=== PATIENT | male | born 1935 | race Caucasian/White ===

== ENCOUNTER 2017-07-12 07:23 | Day surgery (SDC) | payer OTHER ==
[~2017-07-12 07:23] MED LIST: ACET500 PO; MSM PO; NAPR220 PO
== END 2017-07-12 22:56 | disposition home or self-care (01) ==
LOC: MOI US 07:23
PROC: 07B63ZX Excision of Left Axillary Lymphatic, Percutaneous Approach, Diagnostic (ICD-10-PCS; principal; 2017-07-12)
DX: C82.04 Follicular lymphoma grade I, lymph nodes of axilla and upper limb (principal)
CPT/HCPCS: 38505; 76942; 88305

== ENCOUNTER → 2017-08-20 | Outpatient (CLI) | payer OTHER ==
[~2017-08-20] MED LIST changes: +CARB150; +RASA1
[2017-08-21 13:18] LABS: Adenovirus F 40/41 Not Detected (NOT DETECT); Astrovirus Not Detected (NOT DETECT); Campylobacter Sp Not Detected (NOT DETECT); Cryptosporidium Not Detected (NOT DETECT); Cyclospora Cayetanensis Not Detected (NOT DETECT); E. Coli O157 Not Detected (NOT DETECT); Entamoeba Histolytica Not Detected (NOT DETECT); Enteroaggregative E. coli-EAEC Not Detected (NOT DETECT); Enteropathogenic E. coli-EPEC Not Detected (NOT DETECT); Enterotoxigenic E. coli-ETEC Not Detected (NOT DETECT); Giardia Lamblia Not Detected (NOT DETECT); Norovirus GI/GII Not Detected (NOT DETECT); Plesiomonas Shigelloides Not Detected (NOT DETECT); Rotavirus A Not Detected (NOT DETECT); Salmonella Sp Not Detected (NOT DETECT); Sapovirus Not Detected (NOT DETECT); Shiga Toxin-prod E. coli-STEC Not Detected (NOT DETECT); Shigella/Enteroin E. coli-EIEC Not Detected (NOT DETECT); Vibrio Cholerae Not Detected (NOT DETECT); Vibrio Sp Not Detected (NOT DETECT); Yersinia Enterocolitica Not Detected (NOT DETECT)
[2017-08-21 13:59] LABS: Stool Occult Bld Immuno 1 Positive (NEGATIVE)
== END | disposition home or self-care (01) ==
LOC: LAB 13:19 → LAB FUT 08-19 12:35
PROVIDERS: Internal Medicine
DX: R19.7 Diarrhea, unspecified (principal)
CPT/HCPCS: 87507; G0328

== ENCOUNTER 2017-12-02 11:41 | Day surgery (SDC) | payer OTHER ==
[~2017-12-02] VITALS: Ht 175.3 cm; Wt 71.6 kg
[~2017-12-02 11:41] MED LIST changes: -CARB150; -RASA1
[2017-12-02] MEDS ORDERED: RASA1 (12:15)
[2017-12-02] MEDS ORDERED: CARB150 (12:16)
== END 2017-12-02 13:27 | disposition home or self-care (01) ==
LOC: ORSCSDS 11:41
PROVIDERS: Internal Medicine Gastroenterology
PROC: 0DBE8ZX Excision of Large Intestine, Via Natural or Artificial Opening Endoscopic, Diagnostic (ICD-10-PCS; principal; 2017-12-02 12:45)
PROC: 0DBB8ZX Excision of Ileum, Via Natural or Artificial Opening Endoscopic, Diagnostic (ICD-10-PCS; principal; 2017-12-02 12:45)
DX: K92.1 Melena (principal); K52.9 Noninfective gastroenteritis and colitis, unspecified; K64.8 Other hemorrhoids; K57.30 Diverticulosis of large intestine without perforation or abscess without bleeding; Z86.010 Personal history of colon polyps; Z79.899 Other long term (current) drug therapy
CPT/HCPCS: 88305; J1980; J7120

== ENCOUNTER → 2017-12-11 | Outpatient (CLI) | payer OTHER ==
[~2017-12-11] MED LIST changes: +CARB150; +RASA1
== END | disposition home or self-care (01) ==
LOC: LAB EV 08:15
DX: K58.9 Irritable bowel syndrome, unspecified (principal)
CPT/HCPCS: 83993

== ENCOUNTER 2018-09-16 05:46 | Day surgery (SDC) | payer MEDICARE ==
[~2018-09-16] VITALS: Ht 172.7 cm; Wt 76.3 kg
[~2018-09-16 05:46] MED LIST changes: +Carbidopa-Levo1 EAC1 PO; +ELIQUIS5 MG PO; +Lopressor 25 mg25 MG PO; -RASA1; +RASA1 PO
--- NOTE | 2018-09-16 06:40 | NUR ---
History, Chart, Medications and Allergies reviewed before start of procedure. Patient confirms NPO status and agrees with scheduled surgery. Lungs clear T/O to Auscultation. Patient States Post-Procedure ride home has been arranged. Patient reports completing Chlorhexadine shower X2 prior to admission to hospital. Pre-Op teaching done. Pt verbalizes understanding.
--- NOTE | 2018-09-16 08:19 | NUR ---
09/16/18 0819 Ignacia Magaña PT VOIDED PRIOR TO COMING TO THE OR
--- NOTE | 2018-09-16 10:16 | NUR ---
ASSUMED PT CARE FROM ALONA BONILLA RN.
--- NOTE | 2018-09-16 11:00 | NUR ---
ASSUMED CARE OF PT. PT DENIES PAIN. BIOX 97% ON RA. PT GIVEN SIPS OF WATER TO DRINK. PT WITH 3 SMALL ABD INCISION WITH DERMABOND, INTACT NO DRAINAGE.
--- NOTE | 2018-09-16 11:11 | NUR ---
PT FALLS BACK TO SLEEP AND BIOX DROPS TO 90% ON RA. O2 PLACED AT 2L. PT BIOX 92% WHILE SLEEPING. PT HAS WATER, CRACKERS AND APPLESAUCE TO EAT AT HIS CONVENIENCE. PT INSTRUCTED TO HE WOULD NEED TO VOID PRIOR TO DISCHARGE. PT VERBALIZED UNDERSTANDING
--- NOTE | 2018-09-16 11:42 | NUR ---
PT SLEEPING WITH LIGHT SNORING RESPIRATIONS. PT ROUSES EASILY. PT ENCOURAGED TO EAT A CRACKER AND SOME APPLESAUCE TO PRIVIDE HIM WITH A PAIN PILL. PT ABLE TO EAT AND DRINK FLUIDS AND PARK WELL, DENIES NAUSEA. NORCO X 1 TABLET PROVIDED.
--- NOTE | 2018-09-16 12:25 | NUR ---
PT AMB TO AMBULATE TO THE BATHROOM AND VOID APPROX 150CC URINE. DAUGHTER CALLED AND INFORMED THAT PT WOULD BE READY TO GO SOON. SHE STATES IT WOULD BE ABOUT 30 MINUTES BEFORE THEY WOULD BE BACK TO GET HIM. PT ABLE TO GET HIMSELF DRESSED AND IS RELAXING IN BED WHILE HE WAIT FOR RIDE.
--- NOTE | 2018-09-16 12:51 | NUR ---
Discharge instructions reviewed with patient. Patient verbalizes understanding. Copy given to patient to take home. PT RESTING COMFORTABLY. DENIES NEEDS FOR ANYTHING ADDITIONAL AT THIS TIME. ICE PACK PROVIDED FOR PT COMFORT.
== END 2018-09-16 23:51 | disposition home or self-care (01) ==
LOC: ORSCMMR 05:46 → ORD 10:00 → ORSCMMR 10:00 → ORD 10:30 → ORSCMMR 23:51
PROVIDERS: Surgery
PROC: 0YU54JZ Supplement Right Inguinal Region with Synthetic Substitute, Percutaneous Endoscopic Approach (ICD-10-PCS; principal; 2018-09-16 07:30)
PROC: 8E0W4CZ Robotic Assisted Procedure of Trunk Region, Percutaneous Endoscopic Approach (ICD-10-PCS; principal; 2018-09-16 07:30)
DX: K40.90 Unilateral inguinal hernia, without obstruction or gangrene, not specified as recurrent (principal); I48.91 Unspecified atrial fibrillation; Z79.01 Long term (current) use of anticoagulants; G20 Parkinson's disease; Z79.899 Other long term (current) drug therapy
CPT/HCPCS: 49650; S2900; A9270-GY; C1781; J0690; J2370; J2704; J2710; J3010; J7120

== ENCOUNTER 2018-10-27 11:28 | Day surgery (SDC) | payer MEDICARE ==
[~2018-10-27] VITALS: Ht 175.3 cm; Wt 73.0 kg
--- NOTE | 2018-10-27 13:33 | NUR ---
10/27/18 1333 JULY SANTOS 1 IV START IN RIGHT HAND BY MARY JO 2 IV START IN RIGHT WRIST BY PERRY
== END 2018-10-27 15:07 | disposition home or self-care (01) ==
LOC: ORSCSDS 11:28
PROVIDERS: Internal Medicine Gastroenterology
PROC: 0DBE8ZX Excision of Large Intestine, Via Natural or Artificial Opening Endoscopic, Diagnostic (ICD-10-PCS; principal; 2018-10-27 13:00)
PROC: 0DBM8ZX Excision of Descending Colon, Via Natural or Artificial Opening Endoscopic, Diagnostic (ICD-10-PCS; principal; 2018-10-27 13:00)
DX: Z86.010 Personal history of colon polyps (principal); D12.4 Benign neoplasm of descending colon; E78.5 Hyperlipidemia, unspecified; I48.91 Unspecified atrial fibrillation; G20 Parkinson's disease; Z79.01 Long term (current) use of anticoagulants; Z79.899 Other long term (current) drug therapy
CPT/HCPCS: 88305; J2704; J7120

== ENCOUNTER → 2021-05-29 | Outpatient (CLI) | payer OTHER ==
[2021-05-29 13:24] LABS: Stool Occult Bld Immuno 1 Negative (NEGATIVE)
== END | disposition home or self-care (01) ==
LOC: LAB SHORT 08:47
PROVIDERS: Internal Medicine
DX: Z12.11 Encounter for screening for malignant neoplasm of colon (principal)
CPT/HCPCS: 82274